=== PATIENT | male | born 1985 | race Caucasian/White ===

== ENCOUNTER 2018-06-24 21:33 | Emergency (ER) | payer SELFPAY ==
[~2018-06-24] VITALS: Ht 182.9 cm; Wt 79.5 kg
[2018-06-24 21:40] VITALS: Ht 182.9 cm; Wt 79.5 kg
[2018-06-24] MEDS ORDERED: IBUPROFEN 800 MG TAB PO ONE (22:00)
[2018-06-24] MEDS ORDERED: CYCL10TA7 PO (23:56)
[2018-06-24] MEDS ORDERED: HYDR-4011 PO (23:56)
[2018-06-24] MEDS ORDERED: NAPR-985 PO (23:56)
[2018-06-25 00:16] VITALS: BP 128/80; PULSE 78; RESP 15
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
== END 2018-06-25 00:16 | disposition home or self-care (01) ==
LOC: FTE 21:33
DX: S50.811A Abrasion of right forearm, initial encounter (principal); F17.210 Nicotine dependence, cigarettes, uncomplicated; V49.40XA Driver injured in collision with unspecified motor vehicles in traffic accident, initial encounter
CPT/HCPCS: 99284